=== PATIENT | female | born 1940 | race Caucasian/White ===

== ENCOUNTER → 2017-06-12 | Outpatient (CLI) | payer OTHER | LOC: RAD 06-07 02:40 | DX: Z12.31 Encounter for screening mammogram for malignant neoplasm of breast (principal) ==

== ENCOUNTER → 2018-06-26 | Outpatient (CLI) | payer OTHER | LOC: RAD 01:39 | DX: Z12.31 Encounter for screening mammogram for malignant neoplasm of breast (principal) ==

== ENCOUNTER → 2019-07-16 | Outpatient (CLI) | payer OTHER, MEDICARE | LOC: RAD 03:00 | DX: Z12.31 Encounter for screening mammogram for malignant neoplasm of breast (principal) ==

== ENCOUNTER → 2020-07-13 | Outpatient (CLI) | payer OTHER, MEDICARE | LOC: BC 09:43 → EDSTATUS 14:39 | PROVIDERS: ATTEND Family Medicine | DX: Z12.31 Encounter for screening mammogram for malignant neoplasm of breast (principal); N64.89 Other specified disorders of breast ==

== ENCOUNTER → 2021-07-06 | Outpatient (CLI) | payer OTHER, MEDICARE | LOC: RAD 13:34 | PROVIDERS: ATTEND Family Medicine | DX: Z12.31 Encounter for screening mammogram for malignant neoplasm of breast (principal); N64.89 Other specified disorders of breast ==